=== PATIENT | female | born 1990 | race Caucasian/White ===

== ENCOUNTER 2019-07-24 06:04 | Emergency (ER) | payer OTHER ==
[~2019-07-24] VITALS: Ht 154.9 cm; Wt 71.7 kg
[2019-07-24 06:04] VITALS: BP 114/54
[~2019-07-24 06:04] MED LIST: FERR325E14 PO; IBUP-974 PO; PREN-156
--- NOTE | 2019-07-24 06:31 | NUR ---
PT TAKEN TO ER BED 03
--- NOTE | 2019-07-24 07:24 | NUR ---
RECEIVED REPORT FROM JENNIFER ARIZA
[2019-07-24] MEDS ORDERED: ERYTHROMYCIN 0.5% OPTH OINT 1 GM TUBE OP ONE (07:30)
--- NOTE | 2019-07-24 07:46 | NUR ---
PT C/O EYE DISCHARGE EVERY MORNING AND REDNESS ACCOMPANIED BY PAIN AT 1/10 ,NO BLURRING OF VISION NOTED . CONSULT DONE MEDS WERE STARTED WITH NO RELIEF.PT IS AWAKE ,ALERT , DENIES TRUAMA NOR PREVIOUS EYE INJURIES. NKA ALLERGY TO SHRIMP
[2019-07-24 07:53] VITALS: BP 114/54
--- NOTE | 2019-07-24 07:53 | NUR ---
Patient discharged with v/s stable. Written and verbal after care instructions given and explained bacterial conjunctivitis. Patient alert, oriented and verbalized understanding of instructions. Ambulatory with steady gait. All questions addressed prior to discharge. ID band removed. Patient advised to follow up with PMD. Rx of erythromycin and doxycycline given. Patient educated on indication of medication including possible reaction and side effects. Opportunity to ask questions provided and answered.
== END 2019-07-24 07:53 | disposition home or self-care (01) ==
LOC: MED 06:04
DX: H10.89 Other conjunctivitis (principal); B96.89 Other specified bacterial agents as the cause of diseases classified elsewhere; Z79.899 Other long term (current) drug therapy; Z91.013 Allergy to seafood
CPT/HCPCS: 99281; 99283